=== PATIENT | female | born 1980 | race African-American/Black ===

== ENCOUNTER 2021-07-25 08:04 | Emergency (ER) | payer BC ==
[~2021-07-25] VITALS: Ht 175.3 cm; Wt 99.8 kg
[2021-07-25] MEDS ORDERED: KETOROLAC TROMETHAMINE 60 MG/2 ML VIAL IM ONE (08:45)
== END 2021-07-25 09:25 | disposition home or self-care (01) ==
LOC: FSED 08:44
DX: R51.9 Headache, unspecified (principal); F39 Unspecified mood [affective] disorder
CPT/HCPCS: 96372; 99282; J1885